=== PATIENT | female | born 1985 | race Hispanic/Latino ===

== ENCOUNTER 2021-05-07 18:21 | Emergency (ER) | payer OTHER ==
[~2021-05-07] VITALS: Ht 154.9 cm; Wt 68.5 kg
[2021-05-07] MEDS ORDERED: ACETAMINOPHEN 325 MG TAB PO ONE (19:00)
[2021-05-07] MEDS ORDERED: ACETAMINOPHEN 325 MG TAB ONE (19:09)
== END 2021-05-07 19:07 | disposition home or self-care (01) ==
LOC: FSED 18:29
DX: S06.0X0A Concussion without loss of consciousness, initial encounter (principal); S00.11XA Contusion of right eyelid and periocular area, initial encounter; S13.4XXA Sprain of ligaments of cervical spine, initial encounter; Y04.8XXA Assault by other bodily force, initial encounter; Y92.89 Other specified places as the place of occurrence of the external cause; F17.210 Nicotine dependence, cigarettes, uncomplicated
CPT/HCPCS: 99281

== ENCOUNTER 2024-05-22 15:06 | Emergency (ER) | payer OTHER ==
[~2024-05-22] VITALS: Ht 154.9 cm; Wt 68.5 kg
[2024-05-22] MEDS: IBUPROFEN 600 MG TAB PO STA (15:37)
[2024-05-22] MEDS ORDERED: ULTRAM 50MG50 MG PO (17:14)
[2024-05-22] MEDS ORDERED: TRAMADOL HCL 50 MG TAB ONE (17:19)
[2024-05-22] MEDS: TRAMADOL HCL 50 MG TAB PO STA (17:26)
[2024-05-22 17:29] VITALS: PULSE 105; RESP 16; TEMP 98.3; O2SAT 100
== END 2024-05-22 18:20 | disposition home or self-care (01) ==
LOC: ER 15:25
DX: S13.4XXA Sprain of ligaments of cervical spine, initial encounter (principal); V43.62XA Car passenger injured in collision with other type car in traffic accident, initial encounter; Y92.488 Other paved roadways as the place of occurrence of the external cause
CPT/HCPCS: 70450; 72125; 99283